=== PATIENT | female | born 1985 | race Caucasian/White ===

== ENCOUNTER 2017-02-09 08:08 | Emergency (ER) ==
[2017-02-09 08:16] VITALS: BP 137/89; TEMP 97.2; BMI 28.7
[2017-02-09] MEDS ORDERED: SODIUM CHLORIDE 1,000 ML IV STA (08:52)
[2017-02-09] MEDS ORDERED: DILAUDID 1 MG/ML SYRINGE IVP STA ×2 (08:53→09:56)
[2017-02-09 08:54] LABS: BASOPHILS # (AUTO) 0.1 K/uL (0-0.2); BASOPHILS % (AUTO) 1.3 % (0.0-3.0); EOSINOPHILS # (AUTO) 0.3 K/ul (0.0-0.7); EOSINOPHILS % (AUTO) 4.7 % (0.0-7.0); HEMATOCRIT 38.4 % (37.0-47.0); HEMOGLOBIN 12.7 g/dl (12.0-16.0); IMMATURE GRANULOCYTE % (AUTO) 0.4 % (0.0-5.0); LYMPHOCYTES # (AUTO) 1.8 K/uL (0.60-3.4); LYMPHOCYTES % (AUTO) 33.3 (10.0-50.0); MEAN CORPUSCULAR HEMOGLOBIN 29.1 pg (27.0-31.0); MEAN CORPUSCULAR HGB CONC 33.1 (31.8-35.4); MEAN CORPUSCULAR VOLUME 87.9 fl (81.0-99.0); MONOCYTES # (AUTO) 0.5 K/uL (0.4-2.0); MONOCYTES % (AUTO) 9.4 (0-10); NEUTROPHILS # (AUTO) 2.7 K/ul (2.0-6.9); NEUTROPHILS % (AUTO) 50.9; PLATELET COUNT 202 10^3/uL (140-440); RED BLOOD COUNT 4.37 10^6/ul (4.20-5.40); WHITE BLOOD COUNT 5.34 K/ul (4.6-10.2)
--- NOTE | 2017-02-09 08:56 | ED.PDOC ---
General ED Provider: Dr. CAROL ZAMUDIO Chief Complaint: Abdominal Pain Stated Complaint: Sudden onset R lower quadrant pain; no fever or vomiting - very painful to stand or walk Time Seen by Physician: 08:20 Mode of Arrival: Walk-In Information Source: Patient Primary Care Provider: AMBER WILKINS Nursing and Triage Documentation Reviewed and Agree: Yes GI Complaint Exam - Abdominal Pain Complaint/Exam Onset: Sudden Symptoms Are: Worse Timing: Constant Initial Severity: Severe Current Severity: Severe (Hurts to stand or walk; position of comfort sitting on side of bed) Location of Pain: RLQ Radiates To: Denies: Chest, Back, Flank, LLQ, RLQ, Inguinal Character: Reports: Sharp, Cramping Aggravating: Reports: Movement Alleviating: Reports: Position (POC: sitting on edge of bed) Associated Signs and Symptoms: Reports: Nausea (No emesis). Denies: Diaphoresis , Fever, Cough, Chest pain, Dizziness, Back pain, Constipation, Blood in stool, Dysuria, Urinary frequency, Decreased urine output, Decreased appetite, Vaginal bleeding, Vaginal discharge, Vomiting, Diarrhea, Sore throat, Decreased activity Related History: Denies: Similar episode CIRCULAR SAWYER STONE History: Reports: Ovarian cyst (Also C Section 5 mo ago and R falopian tube removed per Mom hx) Review of Systems - Review Of Systems Constitutional: Reports: No symptoms Respiratory: Reports: No symptoms. Denies: Cough, Orthopnea Cardiac: Reports: No symptoms. Denies: Chest pain GI: Reports: Nausea. Denies: Diarrhea, Vomiting : Reports: No symptoms All Other Systems: Reviewed and Negative Past Medical History - Past Medical History Previously Healthy: Yes Endocrine: Reports: None Cardiovascular: Reports: None Respiratory: Reports: None Hematological: Reports: None Gastrointestinal: Reports: Gallstones Genitourinary: Reports: Other (ovrian cyst) Neuro/Psych: Reports: None Musculoskeletal: Reports: Joint Pain (buldging disk on the neck ) Cancer: Reports: None Last Menstrual Period: 01/15/17 - Surgical History General Surgical History: Reports: Cholecystectomy - Family History Family History: Reports: Unknown - Social History Smoking Status: Former smoker Hx Substance Use: No Alcohol Screening: Occasionally Physical Exam - Physical Exam Appearance: Ill-appearing Ill-appearing: Mild Pain Distress: Severe Neck: Supple Respiratory: Airway patent, Breath sounds clear, Breath sounds equal, Respirations nonlabored Cardiovascular: RRR, Pulses normal GI/: Soft, Bowel sounds normal, Tender (Exquisitly painful R lower quadrant; pain referred RLQ with palpation elsewhere) Skin: Warm, Dry, Normal color Neurological: Sensation intact, Motor intact, Alert, Oriented Psychiatric: Affect appropriate, Mood appropriate, Anxious Physician Notification - Case Discussed Physician Notified: Dr Wilkins Time of Notification: 12:50 (Discuss with STEWARD DISHWASHER) Physician Notified: Dr. Auguste; CIRC[facility] SAWYER STONE Time of Notification: 13:35 (Will F/U with patient) Critical Care Note - Critical Care Note Total Time (mins): 45 Course - Course Hematology/Chemistry: 02/09/17 08:47 02/09/17 08:47 Orders, Labs, Meds: Lab Review 02/09/17 02/09/17 08:36 08:47 WBC 5.34 RBC 4.37 Hgb 12.7 Hct 38.4 MCV 87.9 MCH 29.1 MCHC 33.1 RDW Coeff of Isha 12.8 Plt Count 202 Immature Gran % (Auto) 0.4 Neut % (Auto) 50.9 Lymph % (Auto) 33.3 [place] % (Auto) 9.4 Eos % (Auto) 4.7 Baso % (Auto) 1.3 Immature Gran # (Auto) 0.0 Neut # 2.7 Lymph # 1.8 [place] # 0.5 Eos # 0.3 Baso # 0.1 Sodium 138 Potassium 4.0 Chloride 103 Carbon Dioxide 23 Anion Gap 16.0 BUN 16 Creatinine 0.85 Estimated GFR (MDRD) 78.00 BUN/Creatinine Ratio 18.82 Glucose 99 Calcium 9.1 Total Bilirubin 0.34 AST 17 ALT 14 Alkaline Phosphatase 72 Total Protein 7.9 Albumin 4.4 Globulin 3.5 Albumin/Globulin Ratio 1.26 Urine Color Yellow Urine Clarity Clear Urine pH 5.5 Ur Specific [place] 1.025 Urine Protein Negative Urine Glucose (UA) Negative Urine Ketones Negative Urine Blood Negative Urine Nitrite Negative Urine Bilirubin Negative Urine Urobilinogen 0.2 Ur Leukocyte Esterase Negative Urine Test Negative Orders Category Date Time Status CBC W/ AUTO DIFF Stat LAB 02/09/17 08:47 Completed COMPREHENSIVE METABOLIC PANEL Stat LAB 02/09/17 08:47 Completed URINALYSIS C & S IF INDICATED Stat LAB 02/09/17 08:36 Completed URINE Stat LAB 02/09/17 08:36 Completed Hydromorphone HCl [Dilaudid 1 mg/ml Syringe] MEDS 02/09/17 08:53 Discontinued 0.5 mg IVP ONCE STA Hydromorphone HCl [Dilaudid 1 mg/ml Syringe] MEDS 02/09/17 09:56 Discontinued 1 mg IVP ONCE STA Hydromorphone HCl [Dilaudid 1 mg/ml Syringe] MEDS 02/09/17 13:42 Discontinued 1 mg IVP ONCE STA Ondansetron HCl/Pf [Zofran 4 mg/2 ml] MEDS 02/09/17 12:13 Discontinued 4 mg .ROUTE .STK-MED ONE Ondansetron HCl/Pf [Zofran 4 mg/2 ml] MEDS 02/09/17 08:53 Discontinued 4 mg IVP ONCE STA Sodium Chloride 0.9% [Sodium Chloride] 1,000 ml MEDS 02/09/17 08:[address] ABDOMEN/PELVIS WO CONTRAST Stat RADS 02/09/17 09:35 Completed ULTRASOUND PELVIS SMITH VAGINAL/NONOB [U/S PELVIS SMITH RADS 02/09/17 10:56 Completed VAGINAL/NON OB] Stat Medications Discontinued Medications Generic Name Dose Route Start Last Admin Trade Name Freq PRN Reason Stop Dose Admin Hydromorphone HCl 0.5 mg 02/09/17 08:53 02/09/17 09:11 Dilaudid 1 Mg/Ml Syringe IVP 02/09/17 08:54 0.5 mg ONCE STA Administration Hydromorphone HCl 1 mg 02/09/17 09:56 02/09/17 10:00 Dilaudid 1 Mg/Ml Syringe IVP 02/09/17 09:57 1 mg ONCE STA Administration Hydromorphone HCl 1 mg 02/09/17 13:42 02/09/17 13:47 Dilaudid 1 Mg/Ml Syringe IVP 02/09/17 13:43 1 mg ONCE STA Administration Sodium Chloride 1,000 mls @ 1,000 mls/hr 02/09/17 08:52 02/09/17 09:09 Sodium Chloride IV 02/09/17 09:51 1,000 mls/hr BOLUS STA Administration Ondansetron HCl 4 mg 02/09/17 08:53 02/09/17 12:19 Zofran 4 Mg/2 Ml IVP 02/09/17 08:54 4 mg ONCE STA Administration Vital Signs: Temp Pulse Resp BP Pulse Ox 02/09/17 08:09 97.2 F L 74 16 137/89 99 Departure - Departure Time of Disposition: 13:51 Disposition: HOME SELF-CARE Discharge Problem: Abdominal pain Instructions: Abdominal Pain (ED) Condition: Stable Pt referred to PMD for follow-up: Yes (Call Dr Auguste for appointment) Additional Instructions: Use pain medicaiton as prescribed. Rest; call Dr. Auguste's office by tomorrow to make follow up appointment. Take DC of the radiology studies with you. Also follow up with Dr. Wilkins as needed. Prescriptions: Hydrocodone Bit/Acetaminophen [[place] 7.5-325] 1 tab PO Q6HR PRN #12 tablet PRN Reason: pain Allergies/Adverse Reactions: Allergies No Known Allergies Allergy (Verified 02/09/17 08:17) Home Medications: Ambulatory Orders Hydrocodone Bit/Acetaminophen [[place] 7.5-325] 1 tab PO Q6HR PRN #12 tablet 02/09 Multivitamin 1 cap PO DAILY 02/09/17 Sertraline HCl [Zoloft] 25 mg PO DAILY 02/09/17
[2017-02-09 08:57] LABS: BILIRUBIN,URINE Negative (NEGATIVE); KETONES,URINE Negative (NEGATIVE); LEUKOCYTE ESTERASE ,URINE Negative (NEGATIVE); NITRITE,URINE Negative (NEGATIVE); PH,URINE 5.5 (5-9); PROTEIN,URINE Negative (NEGATIVE); URINE, BLOOD Negative (NEGATIVE)
[2017-02-09 08:58] LABS: URINE PREGNANCY INTERNAL QC INTERNAL QC VALID
[2017-02-09 09:05] LABS: ADD URINE MICROSCOPIC NO
[2017-02-09] MEDS: ZOFRAN 4 MG/2 ML IVP STA ×2 (09:09→12:19)
[2017-02-09 09:13] LABS: ALBUMIN 4.4 g/dL (3.4-5.0); ALBUMIN/GLOBULIN RATIO 1.26; BILIRUBIN,TOTAL 0.34 mg/dL (0.00-1.20); BUN/CREATININE RATIO 18.82; CALCIUM 9.1 mg/dL (8.2-10.2); CREATININE 0.85 mg/dL (0.60-1.30); TOTAL PROTEIN 7.9 g/dL (6.4-8.2)
--- NOTE | 2017-02-09 10:52 | CT ---
EXAM: CT of the abdomen pelvis without contrast History: Abdominal pain. Technique: Multiplanar CT images through the abdomen pelvis were obtained without the administratio n of IV contrast Findings: Lung bases are clear. No acute osseous abnormalities. Status post cholecystectomy. No focal liver or splenic lesions. No peripancreatic inflammation. No renal stones and no hydronephrosis. The appendix is normal. Adrenal glands are unremarkable. No bowel obstruction. No free air. No bladder wall thickening. Possible uterine fibroid. Trace pelv ic fluid. Subcutaneous stranding within the mid lower anterior abdominal wall probably represents s carring from previous surgery. Impression: 1. No acute intra-abdominal or pelvic process. 2. Possible uterine fibroid. Correlation can be obtained with pelvic ultrasound.
[2017-02-09] MEDS ORDERED: ZOFRAN 4 MG/2 ML ONE (12:13)
--- NOTE | 2017-02-09 12:29 | US ---
EXAM: PELVIC ULTRASOUND COMPLETE HISTORY: Right lower quadrant pain FINDINGS: Ultrasound pelvis transvaginal. Transvaginal approach imaging was performed for improved resolution and anatomic definition. The uterus measured measured 12.9 x 6.1 x 5.3 centimeters. Myometrium demonstrated and possible 3.8 cm fibroid at the level of the body, right aspect. The endometrial thickness was abnormally increa sed at 1.3 cm. There is fluid within the lower uterine segment endometrial canal along with a small 0.6 cm nodular mass. The ovaries appeared have adequate blood flow. The right ovary measured 3.6 x 2.4 x 2.5 cm and the left ovary 3.6 x 1.4 x 1.8 cm. The right ovary had a small dominant follicle which appeared simple measuring about 2.1 cm. Small volume pelvic ascites. IMPRESSION: 1. Endometrial fluid within the lower uterine segment with a probable polyp or other mass silhouett ed by the fluid at this level. The endometrial tissue of the uterine body with thickened at 1.3 cm. 2. Possible uterine fibroid. 3. Ovaries within normal limits. 4. Small amount of pelvic ascites.
[2017-02-09] MEDS ORDERED: DILAUDID 1 MG/ML SYRINGE IM STA (13:40)
[2017-02-09] MEDS: DILAUDID 1 MG/ML SYRINGE IVP STA ×2 (13:47→14:15)
== END 2017-02-09 14:17 | disposition home or self-care (01) ==
LOC: ED 08:08
DX: R10.31 Right lower quadrant pain (principal); R11.0 Nausea
CPT/HCPCS: 36415; 80053; 81001; 81025; 85025; 96372; 96374; 96375; 96376; 99283